=== PATIENT | male | born 1940 | race Caucasian/White ===

== ENCOUNTER 2021-01-02 11:24 | Emergency (ER) | payer MEDICARE, SELFPAY ==
[2021-01-02 11:34] VITALS: BP 153/72; PULSE 65; RESP 16; TEMP 36.4; O2SAT 99
--- NOTE | 2021-01-02 11:39 | ED.URI ---
HPI - URI/Sore Throat General Chief Complaint: Upper Respiratory Infection Stated Complaint: SORE THROAT Source: patient Mode of arrival: ambulatory Limitations: no limitations History of Present Illness HPI Narrative: Patient is an 80 year old male who presents reporting cough and sore throat x 3 days. He reports positive exposure to Covid approximately 8-9 days ago. He denies taking over the counter medications. He denies chest pain or shortness of breath. He denies all other complaints at this time. MD elicited complaint: cough and sore throat Related Data Home Medications Medication Instructions Recorded Confirmed losartan 01/02/21 pravastatin 01/02/21 tamsulosin mg PO 01/02/21 Allergies Allergy/AdvReac Type Severity Reaction Status Date / Time acetaminophen [From Percocet] Allergy Unknown Verified 01/02/21 11:39 oxycodone [From Percocet] Allergy Unknown Verified 01/02/21 11:39 Penicillins Allergy Unknown Verified 01/02/21 11:39 Review of Systems Review of Systems: Narrative: CONSTITUTIONAL: Denies fever, chills, or sweats. EYES: Denies visual changes, redness, or discharge. ENT: Denies rhinorrhea, congestion, reports sore throat. CARDIOVASCULAR: Denies chest pain, palpitations, or edema. RESPIRATORY: Reports cough, denies dyspnea. GASTROINTESTINAL: Denies abdominal pain, nausea, vomiting, or diarrhea. GENITOURINARY: Denies dysuria or hematuria. SKIN: Denies rash or itching. MUSCULOSKELETAL: Denies back pain, joint pain, or myalgia. NEUROLOGIC: Denies headache, numbness, dizziness, or weakness. PSYCHIATRIC: Denies anxiety or depression. [facility] Past Medical History Medical History (Updated 01/02/21 @ 11:57 by JADE Murphy) BPH (benign prostatic hyperplasia) Elevated cholesterol HTN (hypertension) Family History Family History (Updated 01/02/21 @ 11:58 by JADE Murphy) Other No significant family history Social History Social History (Updated 01/02/21 @ 11:58 by JADE Murphy) Smoking status: Never smoker Alcohol intake: never Substance use: never Occupation/Education: retired Gender identity (if verbalized by the patient): Male Comments At the time of signature, I have reviewed and agree with nursing past medical, surgical, social, and family history unless otherwise noted. Please see nursing chart for further information. There is no relevant family history pertinent to the presenting complaint. Exam Narrative: Exam Narrative: GENERAL: Well-appearing, well-nourished, and in no acute distress. HEAD: Normocephalic, atraumatic. EYES: EOMI. No redness or drainage. Conjunctiva are normal. ENT: Mucous membranes pink and moist. Nares clear. No rhinorrhea. TMs normal bilaterally. Throat mild erythema. Uvula midline. NECK: AROM. Supple. No lymphadenopathy. CHEST: No respiratory distress. Clear to auscultation. HEART: Regular rate and rhythm. No murmur appreciated. Normal peripheral pulses. EXTREMITIES: Normal range of motion. No edema. SKIN: Warm, dry, no rash. NEURO: No focal deficits. Alert and oriented x3. Gait steady. PSYCH: Normal affect. No signs of depression or anxiety. Course Vital Signs Vital signs: Vital Signs Temperature 36.4 C L 01/02/21 11:34 Pulse Rate 65 01/02/21 11:34 Respiratory Rate 16 01/02/21 11:34 Blood Pressure 153/72 H 01/02/21 11:34 Pulse Oximetry 99 01/02/21 11:34 Temperature 36.4 C L 01/02/21 11:34 Pulse Rate 65 01/02/21 11:34 Respiratory Rate 16 01/02/21 11:34 Blood Pressure 153/72 H 01/02/21 11:34 Pulse Oximetry 99 01/02/21 11:34 Reviewed. Patient has been instructed to follow-up with his PCP regarding his blood pressure. MDM - URI/Sore Throat MDM Narrative Medical decision making narrative: Covid PCR testing completed at this time. Discussed quarantine with patient. Discussed red flags with patient of when to be seen in the emergency department for further evaluation. Laya
[2021-01-03 16:10] LABS: SARS-CoV-2 RNA PCR Positive
== END 2021-01-02 11:51 | disposition home or self-care (01) ==
PROVIDERS: Emergency Provider Nurse Practitioner; PCP Internal Medicine
DX: U07.1 COVID-19 (principal); N40.0 Benign prostatic hyperplasia without lower urinary tract symptoms; I10 Essential (primary) hypertension; E78.00 Pure hypercholesterolemia, unspecified
CPT/HCPCS: 99203; C9803; G0463; U0003; U0005

== ENCOUNTER 2022-09-23 11:25 | Outpatient (CLI) | payer MEDICARE, SELFPAY ==
[2022-09-23 12:44] LABS: Alanine Aminotransferase 18 U/L (6-50); Aspartate Amino Transferase 44 U/L (17-59)
== END 2022-09-23 11:26 | disposition home or self-care (01) ==
PROVIDERS: PCP Internal Medicine; Visit Provider Podiatrist Foot & Ankle Surgery
DX: B35.1 Tinea unguium (principal)
CPT/HCPCS: 36415; 84450; 84460

== ENCOUNTER 2022-12-25 11:21 | Outpatient (CLI) | payer OTHER, SELFPAY ==
[2022-12-25 12:16] LABS: Alanine Aminotransferase 20 U/L (6-50); Aspartate Amino Transferase 36 U/L (17-59)
== END 2022-12-25 11:22 | disposition home or self-care (01) ==
LOC: ANHLAB 11:23
PROVIDERS: PCP Internal Medicine; Visit Provider Podiatrist Foot & Ankle Surgery
DX: B35.1 Tinea unguium (principal)
CPT/HCPCS: 36415; 84450; 84460

== ENCOUNTER 2023-04-14 11:29 | Outpatient (CLI) | payer OTHER, SELFPAY ==
[2023-04-14 11:56] LABS: Alanine Aminotransferase 19 U/L (6-50); Aspartate Amino Transferase 33 U/L (17-59)
== END 2023-04-14 11:30 | disposition home or self-care (01) ==
LOC: ANHLAB 11:31
PROVIDERS: PCP Internal Medicine; Visit Provider Podiatrist Foot & Ankle Surgery
DX: B35.1 Tinea unguium (principal)
CPT/HCPCS: 36415; 84450; 84460

== ENCOUNTER 2024-04-07 16:39 | Emergency (ER) | payer OTHER, SELFPAY ==
[2024-04-07 17:00] VITALS: BP 111/59; PULSE 67; RESP 14; TEMP 36.8; O2SAT 100
--- NOTE | 2024-04-07 18:04 | ED.WOUNDLAC ---
HPI - Wound/Laceration General Chief Complaint: Wound/Laceration Stated Complaint: Right Hand Finger Laceration Time Seen by Provider: 04/07/24 18:04 Source: patient, RN notes reviewed and old records reviewed Mode of arrival: ambulatory Limitations: no limitations History of Present Illness HPI narrative: Patient presents with complaints of laceration to right index finger. Happened just prior to arrival. Patient was trimming the neighbors hedges. No active bleeding. He does report that he needs an updated tetanus today. He denies other injury and trauma. He voices no other complaints or concerns at this time. Related Data Home Medications Medication Instructions Recorded Confirmed losartan 100 mg tablet 100 mg PO DAILY 01/02/21 04/07/24 tamsulosin 0.4 mg capsule 0.4 mg PO DAILY 01/02/21 04/07/24 omeprazole 20 mg capsule,delayed 20 mg PO DAILY 04/07/24 04/07/24 release rosuvastatin 10 mg tablet 10 mg PO DAILY 04/07/24 04/07/24 Allergies Allergy/AdvReac Type Severity Reaction Status Date / Time acetaminophen [From Percocet] Allergy Unknown Verified 04/07/24 16:42 oxycodone [From Percocet] Allergy Unknown Verified 04/07/24 16:42 Penicillins Allergy Unknown Verified 04/07/24 16:42 Review of Systems Review of Systems: All systems reviewed & are unremarkable except as noted in HPI and below Constitutional: Constitutional: Reports no additional constitutional complaints ENT: Reports system reviewed and no additional complaints, except as documented Cardiovascular: Cardiovascular: Reports no additional cardiovascular complaints Respiratory: Respiratory: Reports no additional respiratory complaints Gastrointestinal: Gastrointestinal: Reports no additional gastrointestinal complaints Integumentary/Breasts: Skin/Breast: Reports as per HPI [facility] Past Medical History Medical History BPH (benign prostatic hyperplasia) Elevated cholesterol HTN (hypertension) Family History Family History Other No significant family history Social History Social History Smoking status: Never smoker Alcohol intake: never Substance use: never Occupation/Education: retired Gender identity (if verbalized by the patient): Male Comments At the time of my signature, I reviewed and agree with the nursing past medical, surgical, social, and family history. There is no relevant family history pertinent to the patient complaint. Exam Const: General: cooperative, no acute distress, alert and awake Orientation/consciousness: oriented to person, oriented to place and oriented to time HENMT: Head: normal to inspection Resp: Effort & Inspection: normal respiratory effort and able to speak in complete sentences Auscultation: clear to auscultation bilaterally, no crackles, no rales, no rhonchi and no wheezes Cardio: Palpation: normal PMI Rate: regular rate Rhythm: regular rhythm Heart sounds: S1 normal heart sound present and S2 normal heart sound present Neuro: General: oriented to person, oriented to place and oriented to time Cranial nerves: Yes CN's II-XII intact bilaterally Extrem: Right upper extremity: full ROM, normal capillary refill and Extremity exam: right hand normal capillary refill and neuromotor exam normal Hand/finger images: 1. 1 cm shallow flap 2. 0.5 cm shallow flap Psych: Appearance: grossly normal Thought process: Normal thought process present Insight: Good insight present (Psych) Judgement: Good judgement present (Psych) Course Course Level of Care: Express Care Visit Vital Signs Vital signs: Vital Signs Temperature 98.2 F 04/07/24 17:00 Pulse Rate 67 04/07/24 17:00 Respiratory Rate 14 04/07/24 17:00 Blood Pressure 111/59 L 04/07/24 17:00 Pulse Oximetry 100 04/07/24 17:00 Oxygen Delivery Room
[2024-04-07] MEDS: TETANUS,DIPHTHERIA,AC PERTUSSIS ADULT (0.5 ML) BOOSTRIX IM (18:11)
== END 2024-04-07 18:43 | disposition home or self-care (01) ==
PROVIDERS: Emergency Provider Nurse Practitioner Family; PCP Internal Medicine
DX: S61.210A Laceration without foreign body of right index finger without damage to nail, initial encounter (principal); W29.3XXA Contact with powered garden and outdoor hand tools and machinery, initial encounter; Z23 Encounter for immunization; N40.0 Benign prostatic hyperplasia without lower urinary tract symptoms; E78.00 Pure hypercholesterolemia, unspecified; I10 Essential (primary) hypertension
CPT/HCPCS: 12001; 90471; 90715; 99212; G0463